=== PATIENT | male | born 1950 | race Caucasian/White ===

== ENCOUNTER 2016-11-19 05:17 | Day surgery (SDC) | payer MEDICARE, OTHER ==
[2016-11-18 13:43] VITALS: BMI 28.6
[~2016-11-19] VITALS: Ht 180.3 cm; Wt 96.6 kg
[2016-11-19] VITALS (12 sets, daily range): BP systolic 120–144; BP diastolic 65–84; PULSE 49–101; RESP 12–28; Ht 180.3 cm; Wt 96.6 kg
[2016-11-19] MEDS ORDERED: BUPR300T48 PO (05:45)
[2016-11-19] MEDS ORDERED: NEFA200T PO (05:45)
[2016-11-19] MEDS ORDERED: DOXY20TA5 PO (05:45)
[2016-11-19] MEDS ORDERED: SIMV10TA6 PO (05:45)
[2016-11-19] MEDS ORDERED: OLAN5TAB5 PO (05:45)
[2016-11-19] MEDS ORDERED: LAMO100T83 PO (05:45)
[2016-11-19] MEDS ORDERED: ZOLP10TA PO (05:50)
[2016-11-19] MEDS ORDERED: CEFAZOLIN 1 GM INJ ONE (07:00)
[2016-11-19] MEDS ORDERED: EPHEDrine SULFATE 50 MG/5 ML SYG ONE (07:00)
[2016-11-19] MEDS ORDERED: LIDOCAINE 1% (STERILE-PAK) 30 ML INJ ONE (07:14)
[2016-11-19] MEDS ORDERED: DEXAMETHASONE 4 MG/ML 1 ML INJ ONE ×2 (07:15→07:20)
[2016-11-19] MEDS ORDERED: BUPIVACAINE 0.5% (SDV) 30 ML INJ ONE (07:15)
[2016-11-19] MEDS ORDERED: PROPOFOL 20 ML ONE (07:18)
[2016-11-19] MEDS ORDERED: ONDANSETRON 4 MG INJ ONE (07:19)
[2016-11-19] MEDS ORDERED: MIDAZOLAM 1 MG/ML 2 ML INJ ONE (07:19)
[2016-11-19] MEDS ORDERED: FENTAnyl 50 MCG/ML VIAL ONE (07:19)
[2016-11-19] MEDS ORDERED: LIDOCAINE 1% (MDV) 20 ML INJ ONE (07:20)
--- NOTE | 2016-11-19 07:30 | HPN ---
Date/Time of Note Date/Time of Note DATE: 11/19/16 TIME: 07:29 Interval H&P Admission Note Pt. seen H&P reviewed: No system changes JESENIA CRUZ DPM November 19, 2016 07:30
[2016-11-19] MEDS ORDERED: LABETALOL HCL 20MG INJ IV PRN (08:00)
[2016-11-19] MEDS ORDERED: FENTAnyl 50 MCG/ML VIAL IV PRN (08:00)
[2016-11-19] MEDS ORDERED: ONDANSETRON 4 MG INJ IV PRN (08:00)
[2016-11-19] MEDS ORDERED: hydrALAzine 20 MG INJ IV PRN (08:00)
[2016-11-19] MEDS ORDERED: HYDROmorphONE (0.2 MG/ML) 10ML SYG IV PRN (08:00)
[2016-11-19] MEDS ORDERED: BACITRACIN 0.9 GM OINT ONE (08:01)
[2016-11-19] MEDS ORDERED: POVIDONE IODINE 10% 28.4 GM OINT ONE (08:04)
[2016-11-19] MEDS ORDERED: KETOROLAC 30 MG INJ ONE (08:12)
[2016-11-19] MEDS: HYDROmorphONE (0.2 MG/ML) 10ML SYG IV PRN ×3 (08:43→09:09)
--- NOTE | 2016-11-19 09:45 | PREOPHP ---
DATE OF ADMISSION: 11/19/2016 HISTORY OF PRESENT ILLNESS: The patient is being admitted to the hospital for elective foot surgery, palliative treatment unsuccessful. The patient has been explained surgery complications, alternatives and elected to have elective foot surgery. The patient is having pain second interspace on the left foot. ALLERGIES: THE PATIENT DENIES ANY TO ANY MEDICINE. MEDICATIONS: The patient is taking Serzone, Zocor, doxycycline, Lamictal, Wellbutrin, and Zyprexa and testosterone. REVIEW OF SYSTEMS: Negative for heart, lung, liver, kidney, thyroid. Negative for diabetes. Negative for smoking and alcohol. See any other pertinent history by Dr. Novak. PHYSICAL EXAMINATION: EXTREMITIES: Lower extremity physical exam shows the DP and PT equal and regular. NEUROLOGIC: Negative for pathology. DERMATOLOGICAL: Negative for pathology. MUSCULOSKELETAL: Negative for pathology. The patient has a neuroma, second interspace on the left foot. FINAL DIAGNOSIS: Neuroma, second interspace, left foot. Dictated By: JESENIA VERAS/TULIO Conf#: [id number] DID#: [id number]
== END 2016-11-19 10:30 | disposition home or self-care (01) ==
LOC: SDS 05:17
PROVIDERS: ATTEND Podiatrist
DX: G57.62 Lesion of plantar nerve, left lower limb (principal)
CPT/HCPCS: 28080; 88305; J0690; J1100; J1170; J1885; J2250; J2405; J3010